=== PATIENT | female | born 1990 | race American Indian/Alaskan Native ===

== ENCOUNTER 2021-10-01 01:07 | Emergency (ER) | payer BC ==
[2021-10-01 03:10] VITALS: BP 120/65
== END 2021-10-02 04:00 | disposition left against medical advice (07) ==
LOC: ED 01:07
DX: M79.605 Pain in left leg (principal); Z53.21 Procedure and treatment not carried out due to patient leaving prior to being seen by health care provider

== ENCOUNTER 2021-10-01 17:38 | Emergency (ER) | payer BC ==
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
[2021-10-02 00:18] VITALS: BP 124/70
== END 2021-10-02 00:18 | disposition home or self-care (01) ==
LOC: ED 17:38
DX: S80.12XA Contusion of left lower leg, initial encounter (principal); J45.909 Unspecified asthma, uncomplicated; Z91.018 Allergy to other foods; Z91.010 Allergy to peanuts; Z91.013 Allergy to seafood; Z88.0 Allergy status to penicillin; V89.2XXA Person injured in unspecified motor-vehicle accident, traffic, initial encounter; Y93.89 Activity, other specified; Y92.89 Other specified places as the place of occurrence of the external cause; Y99.8 Other external cause status
CPT/HCPCS: 99283